=== PATIENT | male | born 2000 | race Two or more races ===

== ENCOUNTER 2023-07-30 11:11 | Outpatient (REF) | payer MEDICAID, SELFPAY | END 2023-07-30 11:12 | disposition home or self-care (01) | LOC: HO.CHCLNP 11:11 | PROVIDERS: Visit Provider Family Medicine | DX: N39.41 Urge incontinence (principal) | CPT/HCPCS: 0353U; 81003; 87086 ==

== ENCOUNTER 2023-08-24 13:38 | Outpatient (REF) | payer MEDICAID, SELFPAY ==
[2023-08-25 11:14] LABS: MANUAL DIFF FLAG NO
[2023-08-25 11:18] LABS: Appearance Urine Cloudy; Color Urine Dark Yellow; Glucose Urine UA Negative (Negative); Leukocyte Esterase Urine Negative (Negative); Nitrite Urine Negative (Negative); PH 6.5 (5.0-9.0); Specific Gravity - Urine >= 1.030 (1.005-1.025); UMIC TRIGGER UA YES; Urine Blood Negative (Negative); Urine Ketones Trace mg/dL (Negative); Urine Protein 30 (1+) mg/dL (Neg-Trace)
[2023-08-25 11:20] LABS: Bacteria Urine None Seen (None Seen); Hyaline Casts Urine 0-2 /LPF (0-2); RBC Urine 0-2 /HPF (0-2); Squamous Epithelial Cell Urine 0-2 /HPF (0-2); WBC Urine 0-5 /HPF (0-5)
[2023-08-25 11:22] LABS: Basophils Absolute Auto 0.1 X10*3/uL (0.0-0.2); Basophils Percent Auto 1.1 % (0-2); Eosinophils Absolute Auto 0.8 X10*3/uL (0.0-0.4); Eosinophils Percent Auto 16.3 % (0-4); Hematocrit 43.7 % (42.0-52.0); Hemoglobin 14.9 g/dl (14.0-18.0); Imm Gran Abs Auto 0.01 X10*3/uL (0.00-0.03); Imm Gran Pct Auto 0.2 % (0.0-0.4); Lymphocytes Absolute Auto 1.5 X10*3/uL (1.2-4.9); Lymphocytes Percent Auto 31.6 % (20-40); Mean Corpuscular HGB Conc 34.1 g/dl (31.0-36.0); Mean Corpuscular Hemoglobin 28.6 pg (27.0-33.0); Mean Corpuscular Volume 83.9 fL (80.0-98.0); Mean Platelet Volume 12.1 fL (9.4-12.4); Monocytes Absolute Auto 0.5 X10*3/uL (0.1-1.2); Monocytes Percent Auto 11.6 % (2-11); Neutrophils Absolute Auto 1.8 x10*3/uL (2.0-8.3); Neutrophils Percent Auto 39.2 % (45-73); Platelet Count 229 X10*3/uL (160-400); Red Blood Count 5.21 X10*6/uL (4.60-5.80); Red Cell Distribution Width 11.6 % (11.0-16.0); White Blood Count 4.7 X10*3/uL (4.8-10.8)
[2023-08-25 11:57] LABS: Cholesterol 131 mg/dL (<200); HDL Cholesterol 36 mg/dL (>40); Iron 149 mcg/dL (45-160); LDL Cholesterol Calculated 87 mg/dL (<100); Percent Iron Saturation 46 % (15-50); Total Iron Binding Capacity 323 mcg/dL (228-428); Triglycerides 44 mg/dL (<150); Unsaturated Iron Binding 174 ug/dL
[2023-08-25 12:11] LABS: HIV AB/AG Nonreactive (Nonreactive); HIV Num 1 0.06 S/CO (0.00-0.99); Prostate Specific Antigen 0.51 ng/mL (<0.05-4.0); ~HepC Num1 0.08 S/CO (0.00-0.79); ~Hepatitis C Antibody Nonreactive (Nonreactive)
[2023-08-25 12:12] LABS: Ferritin 137 ng/mL (20-250); TSH reflex Free T4 1.37 uIU/mL (0.32-4.0)
[2023-08-30 23:03] LABS: VITAMIN D (1,25 OH) D3 65 pg/mL; Vit D (1,25-Dihydroxy) Total 65 pg/mL (18-72); Vitamin D (1,25 OH) D2 <8 pg/mL
== END 2023-08-24 13:39 | disposition home or self-care (01) ==
LOC: HO.CHCLDS 13:38
PROVIDERS: Visit Provider Family Medicine
DX: N39.41 Urge incontinence (principal)
CPT/HCPCS: 36415; 80061; 81001; 82652; 82728; 83540; 84153; 84443; 85025; 86803; 87086; 87389

== ENCOUNTER 2023-09-25 15:11 | Outpatient (AMB) | payer MEDICAID, SELFPAY ==
--- NOTE | 2023-09-25 15:16 | A.OFFVIS_ITS ---
Intake Intake Visit Reasons: Urge incontinence Intake Note: NEW Patient presents today to established treatment for URGE INCONTINENCE: Meds- None Allergies to Antibiotic- No Known Allergies Blood Thinner- None PVR- 0 mL Stem Roller Or Crusher Operator Required: No Accompanied by: Self / Same As Patient Allergies bee pollen [BEE STINGS] Allergy (Unknown, Verified 09/25/23 15:26) UNKNOWN HPI HPI Comments History of Present Illness Details Efren is a 23-year-old male who presents today to the office to establish as a new patient for an evaluation of urge incontinence. 09/25/2023? He is present today for an evaluation of urinary urgency and frequency. He states that about 3 years ago he noted an increase in urinary frequency and urgency. He states that the symptoms have been worsening associated with urinary lekage at night time causing bed wetting. He was seen by his PCP and has had STD testing which came back negative. c/o's pain in the coccyx region. He states that he recalled falling and hitting tailbone at that age of 12 also fell on tail bone age 16 from slipping on the ice. Evaluation today?UA? leukocytes: trace; blood: negative. Plan: Ordered oxybuytnin 5 mg BID. Renal and bladder US was ordered. MRI of the sacrum and lumbar was ordered. Consider office cystoscopy in future and follow-up in 2 months. [facility] Surgical History (Updated 09/25/23 @ 15:22 by WESTON Caro) No pertinent past surgical history Family History (Updated 09/25/23 @ 15:22 by WESTON Caro) Father No problems noted. Mother No problems noted. Social History (Updated 09/25/23 @ 15:23 by WESTON Caro) Alcohol intake: current Alcohol intake frequency: holidays/special occasions only Patient Tobacco Use Status: Never used Tobacco Review of Systems Const All systems reviewed & are unremarkable except as noted in HPI and below Reports no additional complaints Eyes Reports no additional complaints ENT Reports no additional complaints Card Denies dyspnea Resp Denies cough and Denies dyspnea GI Reports no additional complaints Musc Reports no additional complaints Skin/Breast Denies rash and Denies unusual bruising Neuro Reports no additional complaints Psych Reports no additional complaints Endo Reports no additional complaints Minh/Lymph Reports no additional complaints Aller/Immun Reports no additional complaints Physical Exam Const General: healthy appearing, no acute distress and well developed Orientation/consciousness: patient oriented x3 HEENT Head: Yes normocephalic and Yes atraumatic Eyes Conjunctivae: conjunctivae normal Neck Neck: Yes normal visual inspection Chest Chest palpation & inspection: normal inspection of the chest Resp Effort & Inspection: normal respiratory effort Cardio Rate: regular rate GI Inspection: Yes normal to inspection Palpation (GI): Soft to palpation Other: Prostate Exam: deferred Scrotum: scrotum normal Skin General skin exam: no rashes or lesions noted Neuro General: patient oriented x3 Extrem General: No pedal edema Psych Appearance: grossly normal Affect: normal affect Office Procedures Post Void Residual Post Residual Void Post Void Residual (PVR): 0 23721-[id number] Void Residual by ultrasound Results AMB Urinalysis, Automated UA Leukoctes 0 Nima/uL Last Edit by WESTON Caro on 09/25/23 15:28 UA Nitrite Negative Last Edit by WESTON Caro on 09/25/23 15:28 UA Urobilinogen 0.2 mg/dL Last Edit by WESTON Caro on 09/25/23 15:2 8 UA Protein 30 mg/dL Last Edit by WESTON Caro on 09/25/23 15:28 1+ Subha Cortes 09/25/23 15:28 UA pH 6.0 Last Edit by WESTON Caro on 09/25/23 15:28 UA Blood 10 Jeyson/uL Last Edit by WESTON Caro on 09/25/23 15:28 UA Specific [place] 1.030 Last Edit by WESTON Caro on 09/25/23 15: 28 UA Ketone Positive Last Edit by WESTON Caro on 09/25/23 15:28 80 mg/dL Subha Cortes 09/25/23 15:28 UA Bilirubin 1 mg/dL Last Edit by WESTON Caro on 09/25/23 15:28 1+ Subha Cortes 09/25/23 15:28 UA Glucose 0 mg/dL Last Edit by WESTON Caro on 09/25/23 15:28 Results Reviewed Results Reviewed: Laboratory Last Values Urine pH (Auto) 6.0 09/25/23 15:26 Specific [place] (Auto) 1.030 09/25/23 15:26 Urine Protein (Auto) 30 mg/dL 09/25/23 15:26 Glucose (UA)(Auto) 0 mg/dL 09/25/23 15:26 Urine Ketones (Auto) Positive 09/25/23 15:26 Urine Blood (Auto) 10 Jeyson/uL 09/25/23 15:26 Urine Nitrite (Auto) Negative 09/25/23 15:26 Urine Bilirubin (Auto) 1 mg/dL 09/25/23 15:26 Urine Urobilinogen (Auto) 0.2 mg/dL 09/25/23 15:26 Leukocyte Esterase (Auto) 0 Nima/uL 09/25/23 15:26 Assessment & Plan Assessment & Plan (1) Urinary frequency: Code(s): R35.0 - Frequency of micturition (2) Tail bone pain: Code(s): M53.3 - Sacrococcygeal disorders, not elsewhere classified Plan Ordered oxybuytnin 5 mg BID. Renal and bladder US was ordered. MRI of the sacrum and lumbar was ordered. Consider office cystoscopy in future and follow-up in 2 months. Orders: Orders AMB Urinalysis Automated 09/25/23 Z13.9 - Encounter for screening, unspecified AMB Post Void Residual by ultrasound 09/25/23 N39.8 - Other specified disorders of urinary system MR lumbar spine w con 09/25/23 M53.3 - Sacrococcygeal disorders, not elsewhere classified, R35.0 - Frequency of micturition MR sacrum w con 09/25/23 M53.3 - Sacrococcygeal disorders, not elsewhere classified, R35.0 - Frequency of micturition US retroperitoneal comp 09/25/23 R35.0 - Frequency of micturition Medications: New oxybutynin chloride ER 5 mg PO TID 90 tabs 1RF Patient Instructions: The patient had an opportunity to ask questions regarding treatment plan. All questions were answered. Imaging, Laboratory studies and physical exam results were discussed and reviewed in detail. No major barriers to understanding were identified. The patient expressed understanding and agreement with the above treatment plan. The patient is aware they should contact our office by phone for worsening of their current condition or the appearance of new symptoms. Compliance is encouraged with any medications and followup testing that is ordered. It is a privilege to be allowed the opportunity to participate in the urologic care of your patient. If you have any questions or concerns regarding treatment for the above conditions please do not hesitate to contact me. The office telephone contact is [phone]. This note is constructed in part using voice recognition software. While every effort has been made to ensure accuracy ent nurse errors may have been included. Yours sincerely, Nicky Gonzalez MD Coding Level of Care Code New Pt Level 4 (91066) Diagnoses Urinary frequency R35.0 Tail bone pain M53.3 CPT Codes Post Residual Void - PVR CPT Code: 65134-Dgtp Void Residual by ultrasound ([id number])
== END 2023-09-25 16:04 | disposition home or self-care (01) ==
PROVIDERS: PCP Family Medicine; Referring Provider Family Medicine; Visit Provider Urology
DX: R35.0 Frequency of micturition (principal); M53.3 Sacrococcygeal disorders, not elsewhere classified
CPT/HCPCS: 99204

== ENCOUNTER → 2023-09-25 15:11 | Outpatient (BNVA) | payer MEDICAID, SELFPAY | PROVIDERS: PCP Family Medicine; Visit Provider Urology | DX: R35.0 Frequency of micturition (principal); M53.3 Sacrococcygeal disorders, not elsewhere classified; N39.8 Other specified disorders of urinary system | CPT/HCPCS: 51798; 81003; 99202 ==

== ENCOUNTER 2024-10-24 10:10 | Outpatient (AMB) | payer OTHER, SELFPAY ==
--- NOTE | 2024-10-24 10:15 | MHC.OFFVIS ---
Intake Visit Reasons: 1 yr follow up Intake Note: Patient is Present for Follow Up Med Review Urology Medication: Oxybutynin (Patient has not tried Medication) Antibiotic Allergies:None Blood Thinners: None Last PVR:0ML Todays PVR: 11ml Last PSA: 07/2023- 0.51 Patient states that his urgency has gotten a lil worse. He states that he was unable to try the Oxybutynin due to it costing him $80 monthly. Denies pain or discomfort when urinating Glory Hole Tender Required: No Accompanied by: Self / Same As Patient Allergies finasteride Allergy (Mild, Verified 10/24/24 10:29) Itching bee pollen [BEE STINGS] Allergy (Unknown, Verified 10/24/24 10:29) UNKNOWN Medication List - Last Reconciled 10/24/24 by Nicky Gonzalez MD epinephrine IM solifenacin (Vesicare) 10 mg PO DAILY HPI Comments Details: 10/24/24--Alicia is here for complaints urinary urgency and. I prescribed oxybutynin which he states his insurance did not cover and cost was 80 dollars which he was unable to afford. I ordered imaging studies which were not completed. The patient is wants to try another medication. VESIcare was ordered. Urinalysis protein 15mg/dL improved prior UA protein 30 mg/dL will monitor if persistent will refer to Nephrology. Review of chart: 09/25/2023?Efren is a 23-year-old male who presents today to the office to establish as a new patient for an evaluation of urge incontinence. He is present today for an evaluation of urinary urgency and frequency. He states that about 3 years ago he noted an increase in urinary frequency and urgency. He states that the symptoms have been worsening associated with urinary lekage at night time causing bed wetting. He was seen by his PCP and has had STD testing which came back negative. c/o's pain in the coccyx region. He states that he recalled falling and hitting tailbone at that age of 12 also fell on tail bone age 16 from slipping on the ice. Ordered oxybuytnin 5 mg BID. Renal and bladder US was ordered. MRI of the sacrum and lumbar was ordered. Consider office cystoscopy in future and follow-up in 2 months. [facility] Surgical History No pertinent past surgical history Family History Father No problems noted. Mother No problems noted. Social History Alcohol intake: current Alcohol intake frequency: holidays/special occasions only Patient Tobacco Use Status: Never used Tobacco Review of Systems Const All systems reviewed & are unremarkable except as noted in HPI and below Reports no additional complaints Eyes Reports no additional complaints ENT Reports no additional complaints Card Reports no additional complaints Resp Reports no additional complaints GI Reports no additional complaints Reports as per HPI Musc Reports no additional complaints Skin/Breast Reports system reviewed and no additional complaints, except as documented Neuro Reports no additional complaints Psych Reports no additional complaints Endo Reports no additional complaints Minh/Lymph Reports no additional complaints Aller/Immun Reports no additional complaints Office Procedures Post Void Residual Post Residual Void Post Void Residual (PVR): 11 [id number]-[id number] Void Residual by ultrasound Results AMB Urinalysis, Automated UA Leukoctes 0 Nima/uL Last Edit by Kita Ledezma [facility] on 10/24/24 10:32 UA Nitrite Negative Last Edit by Kita Ledezma [facility] on 10/24/24 10:32 UA Urobilinogen 1 mg/dL Last Edit by Kita Ledezma A on 10/24/24 10:32 UA Protein 15 mg/dL Last Edit by Kita Ledezma [facility] on 10/24/24 10:32 UA pH 6.0 Last Edit by Kita Ledezma [facility] on 10/24/24 10:32 UA Blood 0 Jeyson/uL Last Edit by Kita Ledezma A on 10/24/24 10:32 UA Specific [place] 1.030 Last Edit by Kita Ledezma [facility] on 10/24/24 10:32 UA Ketone Negative Last Edit by Kita Ledezma A on 10/24/24 10:32 UA Bilirubin 1 mg/dL Last Edit by Kita Ledezma A on 10/24/24 10:32 UA Glucose 0 mg/dL Last Edit by Kita Ledezma [facility] on 10/24/24 10:32 Results Reviewed Results Reviewed: Laboratory Last Values Urine pH (Auto) 6.0 10/24/24 10:29 Specific [place] (Auto) 1.030 10/24/24 10:29 Urine Protein (Auto) 15 mg/dL 10/24/24 10:29 Glucose (UA)(Auto) 0 mg/dL 10/24/24 10:29 Urine Ketones (Auto) Negative 10/24/24 10:29 Urine Blood (Auto) 0 Jeyson/uL 10/24/24 10:29 Urine Nitrite (Auto) Negative 10/24/24 10:29 Urine Bilirubin (Auto) 1 mg/dL 10/24/24 10:29 Urine Urobilinogen (Auto) 1 mg/dL 10/24/24 10:29 Leukocyte Esterase (Auto) 0 Nima/uL 10/24/24 10:29 Assessment & Plan Assessment & Plan (1) Urinary frequency: Code(s): R35.0 - Frequency of micturition Category: Medical (2) Urge incontinence of urine: Code(s): N39.41 - Urge incontinence Category: Medical Plan vesicare 10 mg daily fu in 4 months Orders: Orders AMB Urinalysis Automated Today Z13.9 - Encounter for screening, unspecified AMB Post Void Residual by ultrasound Today R35.0 - Frequency of micturition Medications: New solifenacin (Vesicare) 10 mg PO DAILY 30 tabs 4RF Discontinued oxybutynin chloride ER Discontinued Reason: Patient no longer taking 5 mg PO TID 90 tabs 1RF Patient Instructions: The patient had an opportunity to ask questions regarding treatment plan. The patient expressed understanding and agreement with the above treatment plan. The patient is aware they should contact our office by phone for worsening of their current condition or the appearance of new symptoms. Compliance is encouraged with any medications and followup testing that is ordered. It is a privilege to be allowed the opportunity to participate in the urologic care of your patient. If you have any questions or concerns regarding treatment for the above conditions please do not hesitate to contact me. The office telephone contact is [phone]. This note is constructed in part using voice recognition software. While every effort has been made to ensure accuracy stock digger errors may have been included. Yours sincerely, Nicky Gonzalez MD Coding Level of Care Code Est Pt Level 4 (89770) Diagnoses Urinary frequency R35.0 Urge incontinence of urine N39.41 CPT Codes Post Residual Void - PVR CPT Code: 69452-Ycet Void Residual by ultrasound ([id number])
== END 2024-10-24 11:05 | disposition home or self-care (01) ==
PROVIDERS: PCP Family Medicine; Visit Provider Urology
DX: R35.0 Frequency of micturition (principal); N39.41 Urge incontinence; Z13.9 Encounter for screening, unspecified
CPT/HCPCS: 99214

== ENCOUNTER → 2024-10-24 10:10 | Outpatient (BNVA) | payer SELFPAY | PROVIDERS: PCP Family Medicine; Visit Provider Urology | DX: N39.41 Urge incontinence (principal); R35.0 Frequency of micturition | CPT/HCPCS: 51798; 81003; 99212 ==

== ENCOUNTER 2025-08-11 12:20 | Outpatient (REF) | payer OTHER, SELFPAY ==
[2025-08-11 13:31] LABS: MANUAL DIFF FLAG NO
[2025-08-11 13:37] LABS: Hematocrit 39.4 % (42.0-52.0); Hemoglobin 13.2 g/dl (14.0-18.0); Imm Gran Abs Auto 0.02 X10*3/uL (0.00-0.03); Imm Gran Pct Auto 0.3 % (0.0-0.4); Lymphocytes Absolute Auto 1.5 X10*3/uL (1.2-4.9); Mean Corpuscular HGB Conc 33.5 g/dl (31.0-36.0); Mean Corpuscular Hemoglobin 29.1 pg (27.0-33.0); Mean Corpuscular Volume 86.8 fL (80.0-98.0); NRBC Abs Auto 0.000 X10*3/uL (0.0-0.012); NRBC Pct Auto 0.0 /100WBC (0.0-0.2); Platelet Count 210 X10*3/uL (160-400); Red Blood Count 4.54 X10*6/uL (4.60-5.80); White Blood Count 7.2 X10*3/uL (4.8-10.8)
--- OUTSIDE RECORDS SUMMARY | 2025-08-11 14:54 | XMS_ITS | Encounter Summary ---
Author Organization [employer] Address [address] [facility] 7 [place] [address] Care Team Providers Care Nozzle Tender Name Role Phone Marivel Hoang MD Primary Care Provider [phone] Reason for Visit * Reason Onset Date Comments New Patient 06/23/2023 Encounter Details Date Type Department Care Team ([facility] st Contact Info) Description 06/23/2023 Telephone [facility] MED[facility]INE [address] [place], [place] [id number] Nash Bergeron MD [address] [place], [place] [phone] New Patient Social History Tobacco Use Types Packs/Day Years Used Date Smoking Tobacco: Every Day Cigarettes Smokeless Tobacco: Never Comments:Smokes marijuana Sex and Gender Information Value Date Recorded Sex Assigned at Male 08/25/2022 10:22 AM EDT Legal Sex Male 10:22 AM EDT Gender Identity Transgender Female 12/20/2024 1: 41 PM EST Sexual Orientation Bisexual 08/25/2022 10 :22 AM EDT documented as of this encounter Miscellaneous Notes * Telephone Encounter - Kyle Cannon Daniel - 06/26/2023 12:50 PM EDT PAR Kyle Cannon called pt to Offer HONEY PROCESSOR appt. Pt demographics and insurance information were verified. Pt reports previous care at Pt reports no medical conditions. Pt is not taking any medication at this time. Pt given HONEY PROCESSOR appt with PCP Dr. Marivel Hoang on 07/30/2023 @ 10:45 am. Pt will be sent appt reminder card and medical release form and agrees to complete and to return to medical records prior to HONEY PROCESSOR appt. * Telephone Encounter - Kyle Sanchez - 06/23/2023 3:25 PM EDT Pt has been transfer over to wait list for HONEY PROCESSOR. EFFECTIVE SINCE 04/23/2023 documented in this encounter Plan of Treatment Upcoming Encounters Date Type Department Care Team (Late st Contact Info) Description 09/25/2025 1:00 PM EST Office Visit [facility] ADULT DENTAL [address] [place] [address] Jannet Nice documented as of this encounter Visit Diagnoses Not on filedocumented in this encounter Care Teams Nozzle Tender Relationship Specialty Start Date End Date Marivel Hoang MD [address] [place] [id number] PCP - General Family Medicine 07/30/23 documented as of this encounter
--- OUTSIDE RECORDS SUMMARY | 2025-08-11 14:54 | XMS_ITS | Encounter Summary ---
Author Organization [employer] Address [address] [place] [address] Care Team Providers Care Sole Tier Name Role Phone Marivel Hoang MD Primary Care Provider [phone] Reason for Visit * Reason Onset Date Comments Medication Question 08/30/2024 Encounter Details Date Type Department Care Team ([facility] st Contact Info) Description 08/30/2024 Telephone [facility] MEDICINE [address] [place] [address] Marivel Hoang MD [address] [place] [address] Medication Question Social History Tobacco Use Types Packs/Day Years Used Date Smoking Tobacco: Every Day Cigarettes Passive Smoke Exposure: Current Smokeless Tobacco: Never Comments:Smokes marijuana Depression Answer Date Recorded Patient Health Questionnaire-9 Score 11 09/07/2023 Patient Health Questionnaire-9 Score 11 09/07/2023 Last PHQ-9: Questionnaire Data Not on file 1 11/07/2022 Housing Stability Answer Date Recorded What is your housing situation today? I have sudhir milton 02/15/[address] you li ve. Do you have problems with any of the following? None of the above 02/15/2024 Food Insecurity Answer Date Recorded Within the past 12 months, y ou worried that your food would run out before you got money to buy more: Never True 02/15/2024 Within the past 12 months,th e food you bought just didn't last and you didn't have enough money to get more: Never True Transportation Answer Date Recorded In the past 12 months, has l ack of transportation kept you from medical appts, meetings, work or from getting things needed for daily living? No 02/15/2024 Utilities Answer Date Recorded In the past 12 months, has t he electric, gas, oil or water company threatened to shut off services in your home? No 02/15/2024 Depression Answer Date Recorded Patient Health Questionnaire-2 Score 4 09/07/2023 Sex and Gender Information Value Date Recorded Sex Assigned at Male 08/25/2022 10:22 AM EDT Legal Sex Male 10:22 AM EDT Gender Identity Transgender Female 12/20/2024 1: 41 PM EST Sexual Orientation Bisexual 08/25/2022 10 :22 AM EDT documented as of this encounter Miscellaneous Notes * Telephone Encounter - Simon Luna - 08/30/2024 2:23 PM EST Tc from pt requesting a callback in regards the medication Minoxidil (Minoxidil for Men) 5 % solution (no further information discussed) Callback number [phone] documented in this encounter Plan of Treatment Upcoming Encounters Date Type Department Care Team (Late st Contact Info) Description 09/25/2025 1:00 PM EST Office Visit [facility]AL [address] [place] [address] Jannet Nice documented as of this encounter Visit Diagnoses Not on filedocumented in this encounter Additional Health Concerns Assessment Noted Time PHQ-9 Depression Total Score: 11 023 10:19 AM EST documented as of this encounter Care Teams Sole Tier Relationship Specialty Start Date End Date Marivel Hoang MD [address] [place] [id number] PCP - General Family Medicine 07/30/23 documented as of this encounter
--- OUTSIDE RECORDS SUMMARY | 2025-08-11 14:54 | XMS_ITS | Encounter Summary ---
Author Organization [email or web address] Address [address] [facility] [address] [place] [address] Care Team Providers Care Instructor Apparel Manufacture Name Role Phone Marivel Hoang MD Primary Care Provider [phone] Reason for Visit * Reason Comments Med Refill Encounter Details Date Type Department Care Team ([facility] st Contact Info) Description 08/06/2025 Refill [facility] MED & PEDS [address] [place] [address] Marivel Hoang MD [address] [place] [address] Dandruff Social History Tobacco Use Types Packs/Day Years Used Date Smoking Tobacco: Former Cigarettes Passive Smoke Exposure: Current Smokeless Tobacco: Never Comments:Smokes marijuana Alcohol Use Standard Drinks/Week Comments Not Currently 0 (1 standard drink = 0.6 oz pur e alcohol) Depression Answer Date Recorded Patient Health Questionnaire-9 Score 3 03/30/2025 Patient Health Questionnaire-9 Score 3 03/30/2025 Last PHQ-9: Questionnaire Data Not on file 0 03/30/2025 Housing Stability Answer Date Recorded What is your housing situation today? I have sudhir milton 03/22/[address] you li ve. Do you have problems with any of the following? None of the above 03/22/2025 Food Insecurity Answer Date Recorded Within the past 12 months, y ou worried that your food would run out before you got money to buy more: Never True 03/22/2025 Within the past 12 months,th e food you bought just didn't last and you didn't have enough money to get more: Never True Transportation Answer Date Recorded In the past 12 months, has l ack of transportation kept you from medical appts, meetings, work or from getting things needed for daily living? No 03/22/2025 Utilities Answer Date Recorded In the past 12 months, has t he electric, gas, oil or water company threatened to shut off services in your home? No 03/22/2025 Depression Answer Date Recorded Patient Health Questionnaire-2 Score 1 03/30/2025 Internet Access Answer Date Recorded Internet Access Q1 Yes 03/22/2025 Internet Access Q2 Not on file 03/22/2025 Sex and Gender Information Value Date Recorded Sex Assigned at Male 08/25/2022 10:22 AM EDT Legal Sex Male 10:22 AM EDT Gender Identity Transgender Female 12/20/2024 1: 41 PM EST Sexual Orientation Bisexual 08/25/2022 10 :22 AM EDT documented as of this encounter Plan of Treatment Upcoming Encounters Date Type Department Care Team (Late st Contact Info) Description 09/25/2025 1:00 PM EST Office Visit [facility] [address] [place] [address] Jannet Nice documented as of this encounter Visit Diagnoses Diagnosis Dandruff Other seborrheic dermatitis documented in this encounter Additional Health Concerns Assessment Noted Time PHQ-9 Depression Total Score: 3 03/30/20 25 2:31 PM EDT documented as of this encounter Care Teams Instructor Apparel Manufacture Relationship Specialty Start Date End Date Marivel Hoang MD [address] [place] [address] PCP - General Family Medicine 07/30/23 documented as of this encounter
--- OUTSIDE RECORDS SUMMARY | 2025-08-11 14:54 | XMS_ITS | Encounter Summary ---
Author Organization [employer] Address [address] [facility] 7 [place] [address] Care Team Providers Care Ambulette Driver Name Role Phone Marivel Hoang MD Primary Care Provider [phone] Reason for Visit * Reason Onset Date Comments Appointment Request 01/24/2025 Encounter Details Date Type Department Care Team ([facility] Contact Info) Description 01/24/2025 Telephone [facility] CHC MED & PEDS [address] [place] [address] Marivel Hoang MD [address] [place] [address] Appointment Request Social History Tobacco Use Types Packs/Day Years [...] encounter Miscellaneous Notes * Telephone Encounter - Ly Hernandez - 01/24/2025 10:35 AM EDT Tc from pt requesting to r/s derm appt. documented in this encounter Plan of Treatment Upcoming Encounters Date Type Department Care Team (Late st Contact Info) Description 09/25/2025 1:00 PM EST Office Visit [facility] ADULT DENTAL [address] [place] [address] Jannet Nice documented as of this encounter Visit Diagnoses Not on filedocumented in this encounter Additional Health Concerns Assessment Noted Time PHQ-9 Depression Total Score: 11 023 10:19 AM EST documented as of this encounter Care Teams Ambulette Driver Relationship Specialty Start Date End Date Marivel Hoang MD [address] [place] [phone] PCP - General Family Medicine 07/30/23 documented as of this encounter
--- OUTSIDE RECORDS SUMMARY | 2025-08-11 14:54 | XMS_ITS | Clinical Summary ---
Author Organization [employer] Address [address] [facility] 7t [place] [address] Care Team Providers Care Automotive Tire Worker Name Role Phone Marivel Hoang MD Primary Care Provider [phone] Allergies Active Allergy Reactions Criticality Noted Date Comments Bee Venom High 07/06/2012 Finasteride Itching High 04/18/2024 Medications * This document contains information received from the source organization and may not represent a complete record from that organization. Sodium Fluoride (PreviDent 5000 Booster Plus) 1.1 % paste Please use pea size to brush your teeth. Spit, do not rinse. 112 g 1 024 Active Additional Information Patient not taking.Reported on 03/16/2025 Alcohol Swabs (Alcohol Pads) 70 % pads 1 each 1 (one) time per week. 100 each 025 Active B-D SYRINGE LUER-ASHLIE 1CC 1 ML misc USE WITH 22Gx1 INCH NEEDLE ONCE A WEEK TO draw UP MEDICATION 025 Active Easy Touch Hypodermic Needle 22G X 1 misc USE WITH 1 mL syringe ONCE A WEEK TO draw UP MEDICATION 025 Active BD Disp Medon 25G X 5/8 misc USE ONCE A WEEK TO ADMINISTER MEDICATION SUBCUTANEOUSLY 025 Active EPINEPHrine (Epipen) 0.3 MG/0.3ML injection syringe Inject 0.3 mL (0.3 mg) as directed 1 (one) time for 1 dose. use as directed for allergic reaction and then call 911 1 each 025 Active Multiple Vitamin (multivitamin ) tablet Take 1 tablet by mouth Once per day. 120 tablet 3 025 Active acetaminophen (Tylenol) 500 MG tablet Take 1 tablet (500 mg) by mouth every 6 (six) hours if needed for mild pain for up to 20 doses. 20 tablet 025 Active chlorhexidine (Peridex) 0.12 % solution Swish 15 mL morning and night for 1 minute. Spit, do not swallow. Do not eat or drink for 30 minutes following use. 473 mL 025 Active ibuprofen 600 MG tablet Take 1 tablet (600 mg) by mouth every 6 (six) hours if needed for mild pain for up to 20 doses. 20 tablet 025 Active Syringe/Needl e, Disp, (B-D LUER-ASHLIE SYRINGE) 20G X 1 1 ML misc 1 each 1 (one) time per week. Use to draw up medication 12 each Active estradiol valerate (Delestrogen) 20 MG/ML injection 0.25ml weekly IM/subcutaneous as directed 5 mL 025 Active minoxidil (Loniten) 2.5 MG tablet TAKE 1 TABLET(2.5 MG) BY MOUTH DAILY 30 tablet 2 025 Active ketoconazole (NIZOral) 2 % shampooIndica tions:Dandruf f APPLY TOPICALLY 2 TIMES A WEEK 480 mL 2 025 Active Minoxidil (Minoxidil for Men) 5 % foam USE 1/2 A CAPFUL OF FOAM TWICE DAILY TOPICALLY TO THE SCALP AREA OF HAIR LOSS 60 g 3 025 Active ketoconazole (Nizoral) 2 % shampooIndica tions:Dandruf f Apply topically 2 (two) times a week. 500 mL 2 024 2024 Discontinued Minoxidil (Minoxidil for Men) 5 % foam Half a capful of 5% foam applied topically twice daily to the scalp in the area of hair loss 60 g 3 024 2024 Discontinued(R eorder (will not trigger notification to Pharmacy)) minoxidil (Loniten) 2.5 MG tablet Take 1 tablet (2.5 mg) by mouth Once per day. 30 tablet 2 025 2024 Discontinued Active Problems Problem Noted Date Diagnosed Date Poor appetite 03/31/2025 Assessment & Plan (03/31/2025 9:21 AM EDT): Patient reports under-eating, typically missing two meals per day and eating only around 6 PM. This eating pattern raises concerns about potential nutritional deficiencies, although the patient's weight remains within normal limits. Plan: - Order vitamin deficiency panel - Prescribe multivitamin supplement pending lab results - Educate patient on the importance of regular meals and balanced nutrition - Follow up on lab results and adjust treatment plan as needed Annual physical exam 03/30/2025 Assessment & Plan (03/30/2025 2:30 PM EDT): 24 y.o. adult here for annual physical examination Reviewed BMI and BP with patient. Nutritional recommendations: Recommended to decrease soda and sugary beverage consumption. Recommended at least 20 g per meal of protein to assist with satiety. Exercise recommendations: Recommended at least 150 min/week of moderate intensity exercise. BH screen done and reviewed Care Gaps reviewed IZ reviewed and discussed w/ patient Updated/reviewed PMH, Surghx, Family Hx & Social Hx Ingrown left greater toenail 02/25/2024 Assessment & Plan (09/17/2024 8:47 AM EST): Discussed best habits when cutting toe nails and referred to Podiatry for further evaluation. Assessment & Plan (02/25/2024 3:56 PM EDT): Referring to Tire Design Engineer for further evaluation. Dandruff 02/25/2024 Assessment & Plan (02/25/2024 3:55 PM EDT): Discussed medications and refills as needed. Continue current medication. Bilateral knee cap tracking 09/10/2023 Assessment & Plan (09/10/2023 8:39 AM EST): Discussed exercise to assist with this, if he has further concerns we can always refer to orthopedics if he wishes to. Moderate recurrent major depression (CMS/HCC) Assessment & Plan (09/07/2023 10:46 AM EST): Assessment: Patient presents with anxiety and depressive sxs symptoms. Patient would like to be assess for Autism and ADHD. No risk for self-harm, SI, HI. Reason for visit was to assess symptoms and provide support to patient. Symptoms are present in the context of behavior concern that has been pointed out by roommate, per patient behavior doesn't occur at his job. Provided psychoeducation around coping mechanisms to manage anxiety and depressive sxs and organizational techniques to provide structure to his day and recommended OP services referrals, Efren agreed. At this time Efren Jackson meets criteria for Visit Diagnoses: Problem List Items Addressed This Visit Other Severe anxiety Moderate recurrent major depression ([facility]) Cannabis use disorder Patient ready to address current needs Yes Strengths include Efren is in preparation stage of change and has agreed to engage in OP services. PLAN: 1. Follow up with [facility]: Recommended for follow-up: as needed. 2. Patient goal is to engage in MH services 3. Behavioral Recommendations a. Ind. Therapy, referral will be submitted b. Medication Management, referral will be submitted c. Use of coping skills provided as recommended d. [facility] contact number for extra support. Cannabis use disorder 09/07/2023 Bee sting-induced anaphylaxis 07/30/2023 Assessment & Plan (07/30/2023 10:56 AM EDT): -EpiPen prescribed for allergy. Urge incontinence of urine 07/30/2023 Assessment & Plan (09/17/2024 8:46 AM EST): Referral to Urology for continued evaluation of Sx. Assessment & Plan (07/30/2023 10:54 AM EDT): -Patient with complaints of urinary incontinence will be referred to Urology. -Advised to get a urinalysis. -Will send for labs for further evaluation. Alopecia 07/30/2023 Assessment & Plan (03/31/2025 9:20 AM EDT): Patient has a history of alopecia and is seeking treatment options. Previous treatment with finasteride resulted in side effects. Patient was unable to attend a scheduled appointment with [facility] Derm. A trial of low-dose oral minoxidil is being considered as a treatment option. Plan: - Prescribe low-dose oral minoxidil 2.5 mg daily - Informed patient of potential risk of severe hypotension - Schedule follow-up appointment with [facility] Derm for further evaluation and management - Consider spironolactone as an alternative treatment option if oral minoxidil is ineffective or causes side effects Assessment & Plan (04/04/2024 11:13 AM EDT): Referral to Lean Facilitator for further evaluation of symptoms. Prescribing Propecia and Minoxidil for treatment. Relevant Medication Finasteride (Propecia) 1 MG Tablet Minoxidil (Minoxidil for Men) 5 % solution Assessment & Plan (09/04/2023 3:50 PM EST): Patient that presented visit with complaints of alopecia will be referred to Dermatology Skin. Assessment & Plan (07/30/2023 10:59 AM EDT): Areas of redness and scales in the back of his head, sent to derm for eval. Also lab sent for eval. F/up w/ results Encounter for dental examination 10/09/2022 Severe anxiety 01/23/2017 Assessment & Plan (09/07/2023 10:46 AM EST): Assessment: Patient presents with anxiety and depressive sxs symptoms. Patient would like to be assess for Autism and ADHD. No risk for self-harm, SI, HI. Reason for visit was to assess symptoms and provide support to patient. Symptoms are present in the context of behavior concern that has been pointed out by roommate, per patient behavior doesn't occur at his job. Provided psychoeducation around coping mechanisms to manage anxiety and depressive sxs and organizational techniques to provide structure to his day and recommended OP services referrals, Efren agreed. At this time Efren Jackson meets criteria for Visit Diagnoses: Problem List Items Addressed This Visit Other Severe anxiety Moderate recurrent major depression (CMS/HCC) Cannabis use disorder Patient ready to address current needs Yes Strengths include Efren is in preparation stage of change and has agreed to engage in OP services. PLAN: 1. Follow up with [facility]: Recommended for follow-up: as needed. 2. Patient goal is to engage in MH services 3. Behavioral Recommendations a. Ind. Therapy, referral will be submitted b. Medication Management, referral will be submitted c. Use of coping skills provided as recommended d. [facility] contact number for extra support. Acne vulgaris 01/23/2017 Encounters Date Type Department Care Team Description 08/07/2025 Telephone [facility] MEDICINE [address] [place] [phone] Arlen Jefferson RN Appointment Scheduling 08/06/2025 Refill [facility] MED & PEDS [address] [place], [place] [phone] Marivel Hoang MD [facility] 08/05/2025 Refill [facility] MED & PEDS [address] [place], [place] [phone] Marivel Hoang MD 08/05/2025 Refill [facility] MED & PEDS [address] [place], [place] [phone] Kellen Xie CNM 06/27/[address] [phone] Marivel Hoang MD No Show 05/30/2025 Telephone [facility] MEDICINE [address] [place] [address] [phone] Kellen Xie CNM from Last 3 Months Immunizations Immunization Administration Dates Next Due DTaP 07/02/2004, 4,01/26/2001,12/10,2000 DTaP, 5 pertussis antigens 07/02/2004,,01/26/2001,12/10,2000 HPV 9-Valent 01/23/2016 HPV, Quadrivalent 01/04/2015,12/07/2014 Hep A, ped/adol, 2 dose 12/07/2014,01/24/2014 Hep B, Adolescent or Pediatric 1,01/26/2001,2000,09/03 Hib (HbOC) 12/29/2001, 1,2000,09/03 Hib (PRP-T) 12/29/2001, 1,2000,09/03 IPV 07/02/2004, 1,2000,09/03 Influenza Injectable Quadriv alant Preservative Free IIV4 MDCK 08/27/2021 Influenza injectable quadriv alent IIV4 with preservative 01/23/2016 Influenza injectable quadriv alent preservative free 07/24/2016 Influenza, IIV3, injectable 09/07/2008 Influenza, Split (incl. reid fied surface antigen) 07/06/2012 Influenza, Unspecified 07/29/2011,06/27/2010 Influenza, live, intranasal 07/29/2011, 0 Influenza, seasonal, injecta ble, preservative free 08/16/2024 MMR 07/02/2004,07/14/2001 Meningococcal MCV4P ACYW-135 07/06/2012,07/29/20 11 Pfizer Covid-19 Vaccine 12+ 08/16/2024, 3 Pneumococcal Conjugate PCV 20 09/04/2023 Tdap 09/04/2023,07/06/2012,07/29/2011 Varicella 03/09/2008,07/14/2001 Family History Medical History Relation Name Comments Bone cancer Maternal Grandmother Hypertension Mother Relation Name Status Comments Maternal Grandmother Mother Social History Tobacco Use Types Packs/Day Years Used Date Smoking Tobacco: Former Cigarettes Passive Smoke Exposure: Current Smokeless Tobacco: Never Tobacco Cessation:Counseling Given: Not Answered Comments:Smokes marijuana Alcohol Use Standard Drinks/Week Comments [...] Orientation Bisexual 08/25/2022 10 :22 AM EDT Last Filed Vital Signs Vital Sign Reading Time Taken Comments Blood Pressure 102/70 04/05/2025 1:06 PM EDT Pulse 73 03/30/2025 2:09 PM EDT Temperature 36.6 C (97.9 F) 03/30/2025 2:09 PM EDT Respiratory Rate 16 03/30/2025 2:09 PM EDT Oxygen Saturation 96% 03/30/2025 2:09 PM EDT Inhaled Oxygen Concentration - - Weight 71.7 kg (158 lb) 03/30/2025 2:09 PM EDT Height 180.3 cm (5' 11 ) 03/30/2025 2:09 PM EDT Body Mass Index 22.04 03/30/2025 2:09 PM EDT Plan of Treatment Upcoming Encounters Date Type Department Care Team (Late st Contact Info) Description 09/25/2025 1:00 PM EST Office Visit [facility] ADULT DENTAL [address] [place] [address] Jannet Nice Health Maintenance Due Date Last Done Comments Disability Screening 2000 Alcohol/Substance Use Screening 2012 Influenza Vaccine (#1) 2025 4, 08/27/2021, 07/24/2016, Additional history exists Dental Oral Exam 09/17/2025 03/16/2025 Dental Prophylaxis 09/17/2025 03/16/2025, 1 11/15/2023, 01/06/2024 Family Planning (PISQ) 12/20/2025 12/20/2024 Dental X-Ray: Bitewings 03/17/2026 03/16/20, 01/06/2024, 12/29/2023, Additional history exists SDOH Screening 03/22/2026 03/22/2025 Depression Screening 03/30/2026 03/30/2025, 03/30/20 Tobacco Screening 04/05/2026 04/05/2025 Dental X-Ray: Full Mouth 03/17/2028 03/16/2025 DTaP/Tdap/Td Vaccines (9 - Td or Tdap) 09/04/2033 09/04/2023, 07/06/2012, 07/29/2011, Additional history exists Zoster Vaccines (1 of 2) 2050 RSV Patients and Patients Aged 60 years or older (1 - 1-dose 75+ series) 2075 Hepatitis B Vaccines Completed 07/07/2001, 01/26/2001, 2000, Additional history exists HIB Vaccines Completed 12/29/2001, 03/2002, 01/26/2001, Additional history exists IPV Vaccines Completed 07/02/2004, 12/2000, 2000, Additional history exists Meningococcal Vaccine Aged Out 07/06/2012, 011 No longer eligible based on patient's age to complete this topic Hepatitis A Vaccines Completed 12/07/2014, 01/25/20 14 HPV Vaccines Completed 01/23/2016, 12/24, 12/07/2014 HIV Screening Completed 08/24/2023 Hepatitis C Screening Completed 08/24/2023 Pneumococcal Vaccine: Pediatrics (0 to 5 Years) and At-Risk Patients (6 to 49) Years Aged Out 09/04/2023 No longer eligible based on patient's age to complete this topic COVID-19 Vaccine Completed 08/16/2024, , 10/29/2021, Additional history exists Meningococcal B Vaccine Aged Out No l onger eligible based on patient's age to complete this topic RSV under 20 months Aged Out No longe r eligible based on patient's age to complete this topic Rotavirus Vaccines Aged Out No longer eligible based on patient's age to complete this topic Procedures Procedure Name Priority Date/Time Associated Diagnosis Comments CBC WITH AUTO DIFFERENTIAL Routine 08/11/2025 12:24 PM EDT Poor appetite PROPHYLAXIS - ADULT Routine 03/16/2025 2 :00 PM EDT INTRAORAL - COMPLETE SERIES OF RADIOGRAPHIC IMAGES Routine 03/16/2025 2:00 PM EDT PERIODIC ORAL EVALUATION - ESTABLISHED PATIENT Routine 03/16/2025 2:00 PM EDT HEPATITIS C ANTIBODY Routine 08/24/2023 1:43 PM EDT Encounter for health-related screening HIV ANTIBODY/ANTIGEN ([place] DPH) Routine 08/24/2023 1:43 PM EDT from Last 3 Months or Most Recently Relevant to Health Maintenance Results * (ABNORMAL) CBC auto differential (08/11/2025 12:24 PM EDT) White Blood Count 7.2 4.8 - 10.8 X10*3/uL [facility] Red Blood Count 4.54(L) 4.60 - 5.80 X10*6/uL [facility] Hemoglobin 13.2(L) 14.0 - 18.0 g/dl [facility] Hematocrit 39.4(L) 42.0 - 52.0 % [facility] Mean Corpuscular Volume 86.8 80.0 - 98.0 fL [facility] Mean Corpuscular Hemoglobin 29.1 27.0 - 33.0 pg [facility] Mean Corpuscular HGB Conc 33.5 31.0 - 36.0 g/dl [facility] Red Cell Distribution Width 11.7 11.0 - 16.0 % [facility] Platelet Count 210 160 - 400 X10*3/uL [facility] Mean Platelet Volume 12.5(H) 9.4 - 12.4 fL [facility] Neutrophils Percent Auto 52.7 45 - 73 % [facility] Imm Gran Pct Auto 0.3 0.0 - 0.4 % [facility] Lymphocytes Percent Auto 21.1 20 - 40 % [facility] Monocytes Percent Auto 8.6 2 - 11 % [facility] Eosinophils Percent Auto 16.9(H) 0 - 4 % [facility] Basophils Percent Auto 0.4 0 - 2 % [facility] NRBC Pct Auto 0.0 0.0 - 0.2 /100WBC [facility] Neutrophils Absolute Auto 3.8 2.0 - 8.3 x10*3/uL [facility] Imm Gran Abs Auto 0.02 0.00 - 0.03 X10*3/uL [facility] Lymphocytes Absolute Auto 1.5 1.2 - 4.9 X10*3/uL [facility] Monocytes Absolute Auto 0.6 0.1 - 1.2 X10*3/uL [facility] Eosinophils Absolute Auto 1.2(H) 0.0 - 0.4 X10*3/uL [facility] Basophils Absolute Auto 0.0 0.0 - 0.2 X10*3/uL [facility] NRBC Abs Auto 0.000 0.0 - 0.012 X10*3/uL [facility] Blood Venous blood specimen / Unknown 08/11/2025 12:24 PM EDT 08/11/2025 1:24 PM EDT Marivel Hoang MD LAB BLOOD ORDERABLES Final Re sult Performing Organization Address City/[facility] Co de Phone Number [facility] [address] [place] [phone] * Hepatitis C Ab (08/24/2023 1:43 PM EDT) Hepatitis C Antibody Nonreactive Nonreactive [facility] Comment:Antibodies to HCV no t detected; does not exclude early acuteHCV infection. Blood 08/24/2023 1:43 PM EDT 08/25/2023 11:09 AM EDT Marivel Hoang MD LAB BLOOD ORDERABLES Final Re sult [facility] [address] [place] [address] [phone] * HIV Ab/Ag (MARK [facility]ON) (08/24/2023 1:43 PM EDT) HIV AB/AG Nonreactive Nonreactive [facility] Comment:HIV-1 p24 Ag and/or HIV-1/HIV-2 Ab not detected.A test result that is nonreactive does not exclude thepossibility of exposure to or infection with HIV-1 and/orHIV-2. Nonreactive results in this assay for individualswith prior exposure to HIV-1 and/or HIV-2 may be due toantigen and antibody levels that are below the limit ofdetection of this assay.The [employer] HIV Ag/Ab Combo assay result andsupplemental assay results should be interpreted inconjunction with the patient's clinical presentation,history and other laboratory results. If the results areinconsistent with clinical evidence, additional testing issuggested to confirm the result. 08/24/2023 1:43 PM EDT 08/25/2023 11:09 AM EDT us Marivel Hoang MD LAB BLOOD ORDERABLES Final Re sult Performing Organization Address City/[facility]/ZIP Co de Phone Number [facility] [address] [place] [phone] from Last 3 Months or Most Recently Relevant to Health Maintenance Insurance [facility] Care Teams Automotive Tire Worker Relationship Specialty Start Date End Date Marivel Hoang MD [address] [place] [address] PCP - General Family Medicine 07/30/23
--- OUTSIDE RECORDS SUMMARY | 2025-08-11 14:54 | XMS_ITS | Encounter Summary ---
Author Organization [employer] Address [address] [facility] [address] [place] [address] Care Team Providers Care Grinder Dresser Name Role Phone Marivel Hoang MD Primary Care Provider Reason for Visit * Reason Onset Date Comments Appointment Scheduling 08/07/2025 Encounter Details Date Type Department Care Team ([facility] st Contact Info) Description 08/07/2025 Telephone [facility] MEDICINE [address] [place], [place] [phone] Arlen Jefferson RN Appointment Scheduling Social History Tobacco Use Types Packs/Day Years [...] encounter Miscellaneous Notes * Telephone Encounter - Arlen Jefferson RN - 08/07/2025 2:50 PM EDT TC placed to the pt to assist in scheduling an office visit with Kellen Xie for estradiol follow up. The pt was agreeable to scheduling with Kellen Xie for 08/08/2025 and advised to have labs done three days after Estradiol injection. Pt stated understanding and had no further questions at this time. ----- Message from Kellen Xie sent at 08/07/2025 2:12 PM EDT ----- Regarding: appointment Please schedule Bethany for followup with me. She missed an appointment and I haven't seen her since December. I am happy to refill estradiol once she has appointment. She will need labs done as ordered in the summer for that appointment, and that should be done 3 days after she does her estradiol shot. Thanks! documented in this encounter Plan of Treatment Upcoming Encounters Date Type Department Care Team (Late st Contact Info) Description 09/25/2025 1:00 PM EST Office Visit [facility] ADULT DENTAL [address] [place] [address] Jannet Nice documented as of this encounter Visit Diagnoses Not on filedocumented in this encounter Additional Health Concerns Assessment Noted Time PHQ-9 Depression Total Score: 3 03/30/20 25 2:31 PM EDT documented as of this encounter Care Teams Grinder Dresser Relationship Specialty Start Date End Date Marivel Hoang MD [address] [place] [address] PCP - General Family Medicine 07/30/23 documented as of this encounter
--- OUTSIDE RECORDS SUMMARY | 2025-08-11 14:54 | XMS_ITS | Encounter Summary ---
Author Organization [employer] Address [address] [facility] [address] [place] [address] Care Team Providers Care Software Developer Name Role Phone Marivel Hoang MD Primary Care Provider [phone] Reason for Visit * Reason Comments Med Refill Encounter Details Date Type Department Care Team ([facility] st Contact Info) Description 08/05/2025 Refill [facility] CHC MED & PEDS [address] [place] [address] Marivel Hoang MD [address] [place] [address] Social History Tobacco Use Types Packs/Day Years [...] [facility] [address] [place] [address] Jannet Nice documented as of this encounter Visit Diagnoses Not on filedocumented in this encounter Additional Health Concerns Assessment Noted Time PHQ-9 Depression Total Score: 3 03/30/20 25 2:31 PM EDT documented as of this encounter Care Teams Software Developer Relationship Specialty Start Date End Date Marivel Hoang MD [address] [place] [address] PCP - General Family Medicine 07/30/23 documented as of this encounter
--- OUTSIDE RECORDS SUMMARY | 2025-08-11 14:54 | XMS_ITS | Encounter Summary ---
Author Organization [email or web address] Address [address] [facility] [address] [place] [address] Care Team Providers Care Assembler Engine Name Role Phone Marivel Hoang MD Primary Care Provider [phone] Encounter Details Date Type Department Care Team ([facility] st Contact Info) Description 12/21/[address] [facility] MEDICINE [address] [place], [place] [phone] Kellen Xie, [facility] [address] [place], [place] [phone] Social History Tobacco Use Types Packs/Day Years [...] Description 09/25/2025 1:00 PM EST Office Visit [facility] ADULT DENTAL [address] [place] [address] Jannet Nice documented as of this encounter Visit Diagnoses Not on filedocumented in this encounter Additional Health Concerns Assessment Noted Time PHQ-9 Depression Total Score: 11 023 10:19 AM EST documented as of this encounter Care Teams Assembler Engine Relationship Specialty Start Date End Date Marivel Hoang MD [address] [place] [address] PCP - General Family Medicine 07/30/23 documented as of this encounter
--- OUTSIDE RECORDS SUMMARY | 2025-08-11 14:54 | XMS_ITS | Encounter Summary ---
Author Organization [employer] Address [address] [place] [address] 7 [place] [address] Care Team Providers Care Ice Cream Man Name Role Phone Marivel Hoang MD Primary Care Provider [phone] Encounter Details Date Type Department Care Team (Latest Contact Info) Description 11/25/2018 Abstract [facility] CONVERSIONS Dental, Provider, DDS Social History Tobacco Use Types Packs/Day Years Used Date Smoking Tobacco: Never Assessed Sex and Gender Information Value Date Recorded [...] Description 09/25/2025 1:00 PM EST Office Visit [facility] [address] [place] [address] Jannet Nice documented as of this encounter Visit Diagnoses Not on filedocumented in this encounter Care Teams Ice Cream Man Relationship Specialty Start Date End Date Marivel Hoang MD [address] [place] [address] PCP - General Family Medicine 07/30/23 documented as of this encounter
--- OUTSIDE RECORDS SUMMARY | 2025-08-11 14:54 | XMS_ITS | Encounter Summary ---
Author Organization [employer] Address [address] [place] [address] Care Team Providers Care Adolescent Coordinator Name Role Phone Marivel Hoang MD Primary Care Provider [phone] Reason for Visit * Reason Comments Med Refill Encounter Details Date Type Department Care Team ([facility] st Contact Info) Description 08/05/2025 Refill [facility] [address] [place], [place] [id number] Kellen Xie, CHRISTINE [address] [place] [address] Social History Tobacco Use Types Packs/Day Years [...] Description 09/25/2025 1:00 PM EST Office Visit [facility] [address] [place] [address] Jannet Nice documented as of this encounter Visit Diagnoses Not on filedocumented in this encounter Additional Health Concerns Assessment Noted Time PHQ-9 Depression Total Score: 3 03/30/20 25 2:31 PM EDT documented as of this encounter Care Teams Adolescent Coordinator Relationship Specialty Start Date End Date Marivel Hoang MD [address] [place] [address] PCP - General Family Medicine 07/30/23 documented as of this encounter
[2025-08-11 16:59] LABS: Folate 6.8 ng/mL (> or = 4.0); Vitamin B12 367 pg/mL (200-900)
[2025-08-11 17:01] LABS: Alanine Aminotransferase 16 U/L (0-40); Albumin Level 4.5 g/dL (3.5-5.0); Alkaline Phosphatase 55 U/L (39-117); Anion Gap 11 (12-20); Aspartate Amino Transferase 22 U/L (5-37); Blood Urea Nitrogen 9 mg/dL (9-16); Calcium 8.8 mg/dL (8.4-10.2); Carbon Dioxide 24 mmol/L (22-29); Chloride 111 mmol/L (96-108); Estimated Glomerular Filt Rate > 60; Iron 101 mcg/dL (45-160); Percent Iron Saturation 37 % (15-50); Potassium 3.9 mmol/L (3.3-5.1); Sodium 142 mmol/L (135-145); Total Iron Binding Capacity 273 mcg/dL (228-428); Total Protein 6.9 g/dL (6.5-8.0); Unsaturated Iron Binding 172 ug/dL
[2025-08-12 09:17] LABS: Syphilis Screen Nonreactive (Nonreactive)
[2025-08-20 11:13] LABS: Estradiol Ultra Sensitive 612 pg/mL (< OR = 29)
== END 2025-08-11 12:21 | disposition home or self-care (01) ==
LOC: HO.HHCL 12:20
PROVIDERS: PCP Family Medicine; Referring Provider Family Medicine; Visit Provider Advanced Practice Midwife
DX: Z11.3 Encounter for screening for infections with a predominantly sexual mode of transmission (principal); F64.9 Gender identity disorder, unspecified; R63.0 Anorexia; Z13.21 Encounter for screening for nutritional disorder; Z13.0 Encounter for screening for diseases of the blood and blood-forming organs and certain disorders involving the immune mechanism
CPT/HCPCS: 36415; 80053; 82306; 82607; 82670; 82746; 83540; 85025; 86780